=== PATIENT | male | born 1985 | race Caucasian/White ===

== ENCOUNTER 2023-02-22 09:55 | Emergency (ER) | payer OTHER ==
[2023-02-22 10:03] VITALS: BP 129/84
--- NOTE | 2023-02-22 10:11 | ED Physician Documentation ---
PD HPI BACK PAIN - Stated complaint Stated Complaint: BACK PX - Chief complaint Chief Complaint: Back Pain - History obtained from History obtained from: Patient - History of Present Illness Timing - onset: Yesterday Timing - duration: Days (1) Timing - details: Gradual onset (onset of right lower back pain without obvious cause, just started hurting with ROM and getting more stiff. Muscle very tight and pain worse this morning.), Still present Location: Lower, Left Quality: Pain, Spasm Associated symptoms: No: Fever, Weakness, Numbness, Incontinent of urine Improves with: Rest, Position (slightly hunched) Worsened by: Movement Contributing factors: No: Lifting, Trauma Similar symptoms before: Diagnosis (intermittent low back pain. No prior nerve involvement to legs (nursing notes say history of sciatica but pt states intermittent back but no leg weakness/numbness in the past).) Review of Systems Constitutional: denies: Fever, Chills GI: denies: Abdominal Pain Skin: denies: Rash, Lesions PD PAST MEDICAL HISTORY - Past Medical History Cardiovascular: None Respiratory: None Neuro: None - Present Medications Home Medications: Ambulatory Orders Medication Instructions Recorded Confirmed HYDROcod/ACETAM 5/325 [[place] 5/325] 1 ea PO Q6H PRN #18 tablet 02/22/23 Meloxicam [Mobic] 7.5 mg PO BID 10 Days #20 tablet 02/22/23 tiZANidine [Zanaflex] 4 mg PO Q8H PRN #25 tablet 02/22/23 - Allergies Allergies/Adverse Reactions: Allergies Allergy/AdvReac Type Severity Reaction Status Date / Time No Known Drug Allergies Allergy Verified 02/22/23 10:02 PD ED PE NORMAL - Vitals Vital signs reviewed: Yes - General General: Alert and oriented X 3, Well developed/nourished, Other (appeas uncomfortable with huncing to right forward, and guarded slow ROM. ) - Abdomen Abdomen: Soft, Non tender - Back Back: No spinal TTP (he is tender sides of lumbar area, more to the left. No trigger point. ) - Derm Derm: Normal color, Warm and dry, No rash - Neuro Neuro: No motor deficit, No sensory deficit Results - Vitals Vitals: Vital Signs - 24 hr 02/22/23 09:59 Temperature 35.9 C L Heart Rate 84 Respiratory 20 Rate Blood Pressure 129/84 H O2 Saturation 99 Oxygen O2 Source Room air PD Medical Decision Making - ED course Complexity details: reviewed old records (no [facility] reports and not visits for back pain recent. ), considered differential (low back pain and spasms without red flags. Can treat empirically. Discussion with patient and in agreement. ) Departure - Departure Disposition: 01 Home, Self Care Condition: Stable Record reviewed to determine appropriate education?: Yes Instructions: ED Low Back Pain Injury Prescriptions: Meloxicam [Mobic] 7.5 mg PO BID 10 Days #20 tablet HYDROcod/ACETAM 5/325 [[place] 5/325] 1 ea PO Q6H PRN #18 tablet PRN Reason: Pain tiZANidine [Zanaflex] 4 mg PO Q8H PRN #25 tablet PRN Reason: Spasms Comments: Back pain flareups and episodes are commonly treated with a combination of decreased activity and use along with gentle stretchin, heat and massage or chiropractic. Additionally a combination of anti-inflammatories and muscle relaxants and pain medicine. We can try a longer acting and anti-inflammatory rather than the ibuprofen so you do not have to take it as often. I wrote for meloxicam twice daily for the next 10 days or so. Take it with food. To that you can add tizanidine muscle relaxant to help with stiffness and spasms. To that add Tylenol every 4-6 hours if needed for mild to medium pain or hydrocodone if needed for worse pain. I sent prescriptions to the [facility] pharmacy. Light duty/activity for the next 3 to 5 days. I am prescribing a short course of narcotic pain medication for you. These are potentially dangerous and addictive medications that should be used carefully. These medications may constipate you. Take an [id number] stool softener such as docusate twice daily with plenty of water while taking these medications. If you go 24 hours without a bowel movement, take [id number] MiraLAX, per package instructions. Do not drink or drive while taking these medications. If you received narcotic or sedating medications while in the emergency department do not drive for 24 hours. Store this medication in a safe, secure place and out of reach of children. It is a violation of federal law to give or sell this medication to another person or to use in a manner other than prescribed. The ED will not refill narcotic prescriptions, including prescriptions lost or stolen. You can dispose of unwanted medications at the [facility]'s office or at several pharmacies such as [id number]. Forms: Activity restrictions Discharge Date/Time: 02/22/23 11:00
[2023-02-22] MEDS ORDERED: HYDROcod/ACETAM 5/325 MG TABLET PO STA (10:41)
[2023-02-22] MEDS ORDERED: IBUPROFEN 600 MG TABLET PO STA (10:41)
== END 2023-02-22 11:00 | disposition home or self-care (01) ==
LOC: ED 09:55
DX: M62.830 Muscle spasm of back (principal)
CPT/HCPCS: 99282; 99283; A9270